=== PATIENT | female | born 1995 | race African-American/Black ===

== ENCOUNTER → 2016-10-29 | Outpatient (CLI) | payer BC ==
[2016-10-29 17:31] LABS: BASOPHILS # (AUTO) 0.06 10*3/UL; BASOPHILS % (AUTO) 0.5 % (0-1); EOSINOPHILS # (AUTO) 0.46 10*3/UL; HEMATOCRIT 46.3 % (37.0-47.0); HEMOGLOBIN 15.4 g/dL (12.0-16.0); LYMPHOCYTES # (AUTO) 2.45 10*3/uL; MEAN CORPUSCULAR HGB CONC 33.3 g/dL (33-37); MEAN CORPUSCULAR VOLUME 87.2 FL (81-99); MEAN PLATELET VOLUME 9.8 FL (7.4-12.2); MONOCYTES # (AUTO) 0.86 10*3/UL (0.3-0.8); MONOCYTES % (AUTO) 7.6 % (5-15); NEUTROPHILS # (AUTO) 7.51 10*3/UL; NEUTROPHILS % (AUTO) 66.1 % (50-80); RED BLOOD COUNT 5.31 10^6/uL (4.20-5.40)
[2016-10-29 17:39] LABS: PLATELET MORPHOLOGY COMMENT NORMAL MORPHOLOGY (NORM); RBC MORPHOLOGY COMMENT NORMAL MORPHOLOGY (NORM); WBC MORPHOLOGY COMMENT NORMAL MORPHOLOGY (NORM)
[2016-11-03 08:49] LABS: PARASITIC EXAM FIN 1756 (())
== END ==
LOC: LAB 17:17
PROVIDERS: ATTEND Physician Assistant Medical
DX: A09 Infectious gastroenteritis and colitis, unspecified (principal); R63.5 Abnormal weight gain; R10.84 Generalized abdominal pain; R53.83 Other fatigue; R53.1 Weakness; F17.200 Nicotine dependence, unspecified, uncomplicated
CPT/HCPCS: 36415; 84443; 85025; 87046; 87177; 87209; 87338